=== PATIENT | female | born 1975 | race Caucasian/White ===

== ENCOUNTER 2018-07-12 18:51 | Emergency (ER) | payer MEDICAID ==
[~2018-07-12] VITALS: Ht 154.9 cm; Wt 63.5 kg
[2018-07-12 19:16] VITALS: BP 114/74
[2018-07-12] MEDS ORDERED: KETOROLAC 30 MG/ML VIAL IM ONE (20:30)
[2018-07-12 21:00] LABS: BASOPHILS % (AUTO) 0.6 % (0.0-2.0); EOSINOPHILS # (AUTO) 0.2 K/uL (0-0.4); EOSINOPHILS % (AUTO) 3.6 % (0.0-4.0); HEMATOCRIT 37.5 % (36-48); HEMOGLOBIN 12.2 g/dL (12.0-16.0); LYMPHOCYTES # (AUTO) 2.3 K/uL (2.5-16.5); LYMPHOCYTES % (AUTO) 49.2 % (20.5-51.1); MEAN CORPUSCULAR HEMOGLOBIN 27 pg (27-31); MEAN CORPUSCULAR HGB CONC 32 g/dL (33-37); MEAN CORPUSCULAR VOLUME 81.7 fL (80-94); MONOCYTES # (AUTO) 0.5 K/uL (0.8-1.0); MONOCYTES % (AUTO) 11.5 % (1.7-9.3); NEUTROPHILS # (AUTO) 1.6 K/uL (1.8-7.7); NEUTROPHILS % (AUTO) 35.1 % (42.2-75.2); PLATELET COUNT (AUTO) 340 K/uL (140-450); RED BLOOD CELL COUNT(AUTO) 4.59 MIL/uL (4.20-5.40); RED CELL DISTRIBUTION WIDTH 12.9 % (11.6-13.7); WHITE BLOOD COUNT (AUTO) 4.7 K/uL (4.8-10.8)
[2018-07-12 21:07] LABS: APPEARANCE,URINE CLEAR (CLEAR); BILIRUBIN,URINE NEGATIVE (NEGATIVE); BLOOD, URINE 1+ (NEGATIVE); COLOR,URINE YELLOW (YELLOW); LEUKOCYTE ESTERASE ,URINE NEGATIVE (NEGATIVE); NITRITE, URINE NEGATIVE (NEGATIVE); UGLUCOSE NEGATIVE (NEGATIVE)
[2018-07-12 21:16] LABS: CARBON DIOXIDE 26.2 mmol/L (21-32); CREATININE 0.6 mg/dL (0.6-1.3); POTASSIUM 4.2 mmol/L (3.5-5.1)
[2018-07-12 21:18] LABS: ALBUMIN 3.6 g/dL (3.4-5.0); TOTAL BILIRUBIN 0.3 mg/dL (0.0-1.0)
[2018-07-12 21:23] LABS: RBC,URINE 0-5 (RARE) /HPF (0-5)
[2018-07-12 21:24] LABS: CALCIUM OXALATE CRYSTALS,UR 0-10 /HPF (None Seen); WBC,URINE 0-5 (RARE) /HPF (0-5)
[2018-07-12 22:11] VITALS: BP 117/72
== END 2018-07-12 22:10 | disposition home or self-care (01) ==
LOC: MED 18:51
DX: R10.32 Left lower quadrant pain (principal); R11.0 Nausea
CPT/HCPCS: 36415; 74176; 80053; 81001; 81025; 83690; 85025; 96372; 99285; J1885

== ENCOUNTER 2019-02-19 15:13 | Emergency (ER) | payer MEDICAID ==
[~2019-02-19] VITALS: Ht 162.6 cm; Wt 63.5 kg
[2019-02-19 15:29] VITALS: BP 122/71
--- NOTE | 2019-02-19 15:40 | NUR ---
C/O N/V/D, FEVER, BODY ACHING, AND LEFT MID ABDOMINAL PAIN RADIATING TO LEFT MID BACK X 2 DAYS. DIARRHEA FOR 7 TIMES AND VOMITING FOR 6 TIMES. NO BLOOD OR MUCUS IN STOOL. SKIN IS PINK/WARM/DRY; AAOX4 WITH EVEN AND STEADY GAIT; PT DENIES ANY CP, SOB, OR COUGH AT THIS TIME; PATIENT STATES PAIN OF 10/10 AT THIS TIME; VSS; PATIENT POSITIONED FOR COMFORT; HOB ELEVATED; BEDRAILS UP X2; BED DOWN. ER MD MADE AWARE OF PT STATUS.
[2019-02-19] MEDS ORDERED: KETOROLAC 60 MG/2 ML VIAL IM ONE (16:05)
[2019-02-19] MEDS ORDERED: PROMETHAZINE 25 MG/ML VIAL IM ONE (16:05)
[2019-02-19] MEDS ORDERED: LORazepam 1 MG TAB PO ONE (16:05)
[2019-02-19 17:04] LABS: APPEARANCE,URINE CLOUDY (CLEAR); BILIRUBIN,URINE 1+ (NEGATIVE); BLOOD, URINE 3+ (NEGATIVE); COLOR,URINE YELLOW (YELLOW); LEUKOCYTE ESTERASE ,URINE NEGATIVE (NEGATIVE); NITRITE, URINE NEGATIVE (NEGATIVE); UGLUCOSE NEGATIVE (NEGATIVE)
[2019-02-19 17:06] LABS: RBC,URINE 20-50 /HPF (0-5); WBC,URINE 0-5 /HPF (0-5)
[2019-02-19] MEDS ORDERED: LEVOFLOXACIN 500 MG TAB PO ONE (17:55)
[2019-02-19] MEDS ORDERED: cefTRIAXone 1,000 MG in LIDOCAINE 1% ***ER ONLY *** 2.1 ML IM ONE (17:55)
[2019-02-19] MEDS ORDERED: cefTRIAXone 1,000 MG VIAL ONE (18:11)
[2019-02-19] MEDS ORDERED: LIDOCAINE MPF 1% - 5 mL VIAL 5 ML ONE (18:16)
[2019-02-19 18:42] VITALS: BP 110/70
--- NOTE | 2019-02-19 19:15 | NUR ---
BEDSIDE REPORT RECIEVED FROM NIKKY MORALES. [facility] CARE AT THIS TIME.
--- NOTE | 2019-02-19 19:25 | NUR ---
Patient discharged with v/s stable. Written and verbal after care instructions given and explained. Patient alert, oriented and verbalized understanding of instructions. Ambulatory with steady gait. All questions addressed prior to discharge. ID band removed. Patient advised to follow up with PMD. Rx of Promethezine, Cipro, and fiorcet given. Patient educated on indication of medication including possible reaction and side effects. Opportunity to ask questions provided and answered.
== END 2019-02-19 19:25 | disposition home or self-care (01) ==
LOC: MED 15:13
DX: N39.0 Urinary tract infection, site not specified (principal); R19.7 Diarrhea, unspecified; R42 Dizziness and giddiness
CPT/HCPCS: 74176; 81001; 81025; 96372; 99284; J0696; J1885; J2001; J2550

== ENCOUNTER 2019-04-05 08:44 | Emergency (ER) | payer MEDICAID ==
[~2019-04-05] VITALS: Ht 154.9 cm; Wt 63.5 kg
--- NOTE | 2019-04-05 08:50 | NUR ---
PT TO ER BED 7
[2019-04-05 08:55] VITALS: BP 114/68
--- NOTE | 2019-04-05 09:00 | NUR ---
PT PRESENTS TO ED WITH C/O RT EYELID EDEMA AND NON-RADIATING BURNING SENSATION X 1 DAY. DENIES ANY INJURY/TRAUMA TO EYE. NO DRAINAGE/REDNESS NOTED. PT DENIES ANY PAIN AT THIS TIME. VSS.ER MD TO EVALUATE PT. RX: NONE ALLERGIES: DENIES
[2019-04-05 09:33] VITALS: BP 114/68
--- NOTE | 2019-04-05 09:37 | NUR ---
Patient discharged with v/s stable. Written and verbal after care instructions given and explained. Patient alert, oriented and verbalized understanding of instructions. Ambulatory with steady gait. All questions addressed prior to discharge. ID band removed. Patient advised to follow up with PMD. Rx of Hydrocortisone topical cream and Vaktrax tab given. Patient educated on indication of medication including possible reaction and side effects. Opportunity to ask questions provided and answered.
== END 2019-04-05 09:37 | disposition home or self-care (01) ==
LOC: MED 08:44
DX: H01.004 Unspecified blepharitis left upper eyelid (principal)
CPT/HCPCS: 99283